=== PATIENT | male | born 1970 | race Caucasian/White ===

== ENCOUNTER 2018-05-01 11:45 | Inpatient (IN) | payer OTHER ==
[~2018-05-01] VITALS: Ht 154.9 cm; Wt 69.9 kg
[2018-05-08] MEDS ORDERED: INTESTINEX680 M1 PO (08:38)
[2018-05-08] MEDS ORDERED: PERCOCET 5-3251 EACH PO (08:38)
[2018-05-08] MEDS ORDERED: OXYC1TAB9 PO (08:46)
== END 2018-05-08 12:44 | disposition home or self-care (01) | DRG 331 ==
LOC: SURG 05-06 05:15 → O/R 05-06 05:15 → SURH 05-06 07:00 → SURG 05-06 19:07
PROVIDERS: ADMIT Surgery
PROC: 0DJD8ZZ Inspection of Lower Intestinal Tract, Via Natural or Artificial Opening Endoscopic (ICD-10-PCS; 2018-05-06)
PROC: 0DTN4ZZ Resection of Sigmoid Colon, Percutaneous Endoscopic Approach (ICD-10-PCS; principal; 2018-05-06 07:00)
DX: K57.32 Diverticulitis of large intestine without perforation or abscess without bleeding (principal); R73.01 Impaired fasting glucose

== ENCOUNTER 2018-07-02 13:36 | Emergency (ER) | payer OTHER ==
[~2018-07-02] VITALS: Ht 154.9 cm; Wt 68.0 kg
[~2018-07-02 13:36] MED LIST: INTESTINEX680 M1 PO; OXYC1TAB9 PO; PERCOCET 5-3251 EACH PO
== END 2018-07-02 19:33 | disposition home or self-care (01) ==
LOC: ER 13:36
DX: S30.1XXA Contusion of abdominal wall, initial encounter (principal); V49.9XXA Car occupant (driver) (passenger) injured in unspecified traffic accident, initial encounter; Y93.89 Activity, other specified; Y92.488 Other paved roadways as the place of occurrence of the external cause; Y99.8 Other external cause status

== ENCOUNTER 2019-07-13 08:16 | Day surgery (SDC) | payer OTHER | END 2019-07-13 13:45 | disposition home or self-care (01) | LOC: AMB-ENDOS 08:16 | PROVIDERS: ATTEND Surgery | DX: K57.32 Diverticulitis of large intestine without perforation or abscess without bleeding (principal) ==

== ENCOUNTER 2021-11-03 08:00 | Inpatient (IN) | payer OTHER ==
[~2021-11-03] VITALS: Ht 154.9 cm; Wt 72.6 kg
[2021-11-09] MEDS ORDERED: ELIQUIS2.5 MG PO (15:26)
[2021-11-09] MEDS ORDERED: DUI500 PO (15:26)
[2021-11-09] MEDS ORDERED: PERCOCET 5-3251 EACH PO (15:26)
== END 2021-11-09 15:51 | disposition home or self-care (01) | DRG 470 ==
LOC: O/R 11-07 05:32 → SURG 11-07 05:32 → SURH 11-07 08:00 → RECOVERY 11-07 08:00 → SURG 11-07 12:14 → SURH 11-07 18:15 → SURG 11-09 15:51
PROVIDERS: ADMIT Orthopaedic Surgery; ATTEND Orthopaedic Surgery
PROC: 0SRD0J9 Replacement of Left Knee Joint with Synthetic Substitute, Cemented, Open Approach (ICD-10-PCS; principal; 2021-11-07 18:15)
DX: M17.12 Unilateral primary osteoarthritis, left knee (principal); D62 Acute posthemorrhagic anemia; M22.12 Recurrent subluxation of patella, left knee; Z96.652 Presence of left artificial knee joint; Z20.822 Contact with and (suspected) exposure to COVID-19